=== PATIENT | female | born 1950 | race Caucasian/White ===

== ENCOUNTER 2019-03-01 12:59 | Emergency (ER) | payer MEDICARE, BC ==
[2019-03-01 13:09] VITALS: BP 153/66
--- NOTE | 2019-03-01 13:49 | ER Document Report ---
ED Medical Screen (RME) - General Chief Complaint: Fall Injury Stated Complaint: FALL Time Seen by Provider: 03/01/19 13:42 Mode of Arrival: Medic Information source: Patient Notes: Patient presents emergency department with puncture laceration to bridge of her nose abrasions to her forehead and nose after falling onto concrete. She reports she did have glasses on. Patient denies change in LOC. Reports left fifth digit finger pain which appears to be dislocated. Patient also complains of left knee pain. No active bleeding. Reports tetanus up-to-date. Patient reports she has had trouble falling lately due to vision problems and is being treated for glaucoma. Patient answering questions appropriately alert and oriented. I have greeted and performed a rapid initial assessment of this patient. A comprehensive ED assessment and evaluation of the patient, analysis of test results and completion of the medical decision making process will be conducted by additional ED providers. TRAVEL OUTSIDE OF THE [place] IN LAST 30 DAYS: No - Related Data Allergies/Adverse Reactions: amoxicillin Allergy (Verified 03/01/19 13:31) Penicillins Allergy (Verified 03/01/19 12:59) Past Medical History - Social History Chew tobacco use (# tins/day): No Frequency of alcohol use: None Drug Abuse: None - Past Medical History Cardiac Medical History: Reports: Hx Hypertension Pulmonary Medical History: Reports: Hx Asthma Endocrine Medical History: Reports: Hx Diabetes Mellitus Type 2 Renal/ Medical History: Denies: Hx Peritoneal Dialysis Past Surgical History: Reports: Hx Appendectomy, Hx Cholecystectomy, Hx Orthopedic Surgery - bilateral knees Physical Exam - Vital signs Vitals: Temp Pulse Resp BP Pulse Ox 98.7 F 83 16 153/66 H 96 03/01/19 13:06 03/01/19 13:06 03/01/19 13:06 03/01/19 13:06 03/01/19 13:06 Course - Vital Signs Vital signs: Temp Pulse Resp BP Pulse Ox 98.7 F 83 16 153/66 H 96 03/01/19 13:06 03/01/19 13:06 03/01/19 13:06 03/01/19 13:06 03/01/19 13:06
--- NOTE | 2019-03-01 14:19 | RADIOLOGY REPORT (SQ) ---
EXAM DESCRIPTION: CT HEAD WITHOUT; CT FACIAL AREA WITHOUT COMPLETED DATE/TIME: 03/01/2019 2:06 pm REASON FOR STUDY: fell onto concrete, open lac forehead,nose COMPARISON: None. TECHNIQUE: Axial images acquired through the brain and facial bones without intravenous contrast. I mages reviewed with bone, brain and subdural windows. Additional sagittal and coronal reconstruction s were generated. Images stored on PACS. All CT scanners at this facility use dose modulation, iterative reconstruction, and/or weight based d osing when appropriate to reduce radiation dose to as low as reasonably achievable (ALARA). [facility]: Dose Right [facility]: CareDose [facility]: Dose Right [facility]: Teradose 4D [facility]: Smart Number 100 RADIATION DOSE: CT Rad equipment meets quality standard of care and radiation dose reduction techniq ues were employed. CTDIvol: 53.2 mGy. DLP: 991 mGy-cm.; CT Rad equipment meets quality standard of ca re and radiation dose reduction techniques were employed. CTDIvol: 30.4 mGy. DLP: 549 mGy-cm. mGy. LIMITATIONS: None. FINDINGS: VENTRICLES: Normal size and contour. CEREBRUM: No masses. No hemorrhage. No midline shift. No evidence for acute infarction. Normal gra y/white matter differentiation. No areas of low density in the white matter. CEREBELLUM: No masses. No hemorrhage. No alteration of density. No evidence for acute infarction. EXTRAAXIAL SPACES: No fluid collections. No masses. ORBITS AND GLOBE: No intra- or extraconal masses. Normal contour of globe without masses. CALVARIUM: No fracture. Hyperostosis frontalis. FACIAL BONES: Comminuted fractures of the bilateral nasal bones. PARANASAL SINUSES: Mucosal thickening of the right maxillary sinus without air-fluid level. SOFT TISSUES: No mass or hematoma. OTHER: No other significant finding. IMPRESSION: 1. No acute intracranial pathology. 2. Comminuted fractures of the bilateral nasal bones. No other facial bone fractures. 3. Mucosal thickening of the right maxillary sinus without air-fluid level. Correlate for evidence of sinusitis. EVIDENCE OF ACUTE STROKE: NO. COMMENT: Quality ID # 436: Final reports with documentation of one or more dose reduction techniques (e.g., Automated exposure control, adjustment of the mA and/or kV according to patient size, use of iterative reconstruction technique) TECHNICAL DOCUMENTATION: JOB ID: [id number] [employer]- All Rights Reserved Reading location - IP/workstation name: [email or web address]
--- NOTE | 2019-03-01 14:19 | RADIOLOGY REPORT (SQ) ---
EXAM DESCRIPTION: CT HEAD WITHOUT; CT FACIAL AREA WITHOUT COMPLETED DATE/TIME: 03/01/2019 2:06 pm REASON FOR STUDY: fell onto concrete, open lac forehead,nose COMPARISON: None. TECHNIQUE: Axial images acquired through the brain and facial bones without intravenous contrast. I mages reviewed with bone, brain and subdural windows. Additional sagittal and coronal reconstruction s were generated. Images stored on PACS. All CT scanners at this facility use dose modulation, iterative reconstruction, and/or weight based d osing when appropriate to reduce radiation dose to as low as reasonably achievable (ALARA). [facility]: Dose Right [facility]: CareDose [facility]: Dose Right [facility]: Teradose 4D [facility]: Smart [employer] RADIATION DOSE: CT Rad equipment meets quality standard of care and radiation dose reduction techniq ues were employed. CTDIvol: 53.2 mGy. DLP: 991 mGy-cm.; CT Rad equipment meets quality standard of ca re and radiation dose reduction techniques were employed. CTDIvol: 30.4 mGy. DLP: 549 mGy-cm. mGy. LIMITATIONS: None. FINDINGS: VENTRICLES: Normal size and contour. CEREBRUM: No masses. No hemorrhage. No midline shift. No evidence for acute infarction. Normal gra y/white matter differentiation. No areas of low density in the white matter. CEREBELLUM: No masses. No hemorrhage. No alteration of density. No evidence for acute infarction. EXTRAAXIAL SPACES: No fluid collections. No masses. ORBITS AND GLOBE: No intra- or extraconal masses. Normal contour of globe without masses. CALVARIUM: No fracture. Hyperostosis frontalis. FACIAL BONES: Comminuted fractures of the bilateral nasal bones. PARANASAL SINUSES: Mucosal thickening of the right maxillary sinus without air-fluid level. SOFT TISSUES: No mass or hematoma. OTHER: No other significant finding. IMPRESSION: 1. No acute intracranial pathology. 2. Comminuted fractures of the bilateral nasal bones. No other facial bone fractures. 3. Mucosal thickening of the right maxillary sinus without air-fluid level. Correlate for evidence of sinusitis. EVIDENCE OF ACUTE STROKE: NO. COMMENT: Quality ID # [id number]: Final reports with documentation of one or more dose reduction techniques (e.g., Automated exposure control, adjustment of the mA and/or kV according to patient size, use of iterative reconstruction technique) TECHNICAL DOCUMENTATION: JOB ID: [id number] [employer]- All Rights Reserved Reading location - IP/workstation name: [email or web address]
--- NOTE | 2019-03-01 14:20 | RADIOLOGY REPORT (SQ) ---
EXAM DESCRIPTION: CT CERVICAL SPINE WITHOUT COMPLETED DATE/TIME: 03/01/2019 2:06 pm REASON FOR STUDY: fell onto concrete COMPARISON: None. TECHNIQUE: Axial images acquired through the cervical spine without intravenous contrast. Images re viewed with lung, soft tissue and bone windows. Reconstructed coronal and sagittal MPR images review ed. Images stored on PACS. All CT scanners at this facility use dose modulation, iterative reconstruction, and/or weight based d osing when appropriate to reduce radiation dose to as low as reasonably achievable (ALARA). [facility]: Dose Right [facility]: CareDose [facility]: Dose Right [facility]: Teradose 4D [facility]: [employer] RADIATION DOSE: CT Rad equipment meets quality standard of care and radiation dose reduction techniq ues were employed. CTDIvol: 19.4 mGy. DLP: 326 mGy-cm. mGy. LIMITATIONS: None. FINDINGS: ALIGNMENT: Anatomic. MINERALIZATION: Normal. VERTEBRAL BODIES: No fractures or dislocation. DISCS: Disc space narrowing from C4-C7. Anterior and posterior osteophytes are present. FACETS, LATERAL MASSES, POSTERIOR ELEMENTS: Hypertrophic facet changes are present bilaterally. HARDWARE: None in the spine. VISUALIZED RIBS: No fractures. LUNG APICES AND SOFT TISSUES: The right lobe of the thyroid is larger than the left and is heterogene ous. OTHER: No other significant finding. IMPRESSION: Degenerative disc disease. Spondylosis. Facet arthropathy. No acute findings. Promin ent right lobe of the thyroid. TECHNICAL DOCUMENTATION: JOB ID: [id number] Quality ID # [id number]: Final reports with documentation of one or more dose reduction techniques (e.g., Au tomated exposure control, adjustment of the mA and/or kV according to patient size, use of iterative reconstruction technique) 2010 [employer]- All Rights Reserved Reading location - IP/workstation name: [email or web address]
--- NOTE | 2019-03-01 14:22 | RADIOLOGY REPORT (SQ) ---
EXAM DESCRIPTION: HAND LEFT 3 VIEWS COMPLETED DATE/TIME: 03/01/2019 2:11 pm REASON FOR STUDY: fell onto concrete, open lac forehead,nose COMPARISON: None. EXAM PARAMETERS: NUMBER OF VIEWS: Three views. TECHNIQUE: AP, lateral and oblique radiographic images acquired of the left hand. LIMITATIONS: None. FINDINGS: MINERALIZATION: Normal. BONES: There is palmar subluxation of the middle phalanx at the left 5th proximal interphalangeal juan r nt. There is a tiny associated corner type fracture of the middle phalanx. No worrisome bone lesion s. JOINTS: Moderate to severe osteoarthritic pattern degenerative change about the left hand. SOFT TISSUES: No soft tissue swelling. No foreign body. OTHER: No other significant finding. IMPRESSION: There is palmar subluxation of the middle phalanx at the left 5th proximal interphalange al joint. There is a tiny associated corner type fracture of the middle phalanx. TECHNICAL DOCUMENTATION: JOB ID: [id number] [employer]- All Rights Reserved Reading location - IP/workstation name: [email or web address]
[2019-03-01] MEDS ORDERED: LIDOCAINE 1% INJ (10 MG/ML) 10 ML MDV INJ ONE (14:42)
[2019-03-01] MEDS ORDERED: LIDOCAINE 1% INJ-PF (10 MG/ML) 30 ML SDV INJ ONE (14:42)
--- NOTE | 2019-03-01 14:51 | ER Document Report ---
ED General - General Chief Complaint: Fall Injury Stated Complaint: FALL Time Seen by Provider: 03/01/19 13:42 Primary Care Provider: CATE SCHRADER FNP [Primary Care Provider] - Follow up as needed LIDYA LAUGHLIN MD [ACTIVE STAFF] - Follow up in 3-5 days Mode of Arrival: Medic Information source: Patient, [facility] Records Notes: 68-year-old female hypertension, type 2 diabetes, asthma presents after a trip and fall just prior to arrival. Patient states that she did not notice occurred when she was walking out of the dealership. She denies any preceding chest pain, shortness of breath, dizziness. She is not on any anticoagulation. She is complaining of pain to her left fifth finger and bridge of nose. Patient denies loss of consciousness. Last tetanus was a proximally 5 years ago. TRAVEL OUTSIDE OF THE [place] IN LAST 30 DAYS: No - HPI Onset: Just prior to arrival Onset/Duration: Sudden Quality of pain: Achy, Throbbing Severity: Mild Associated symptoms: Headache, Other - nose bleed Exacerbated by: Movement Relieved by: Denies Similar symptoms previously: No Recently seen / treated by doctor: No - Related Data Allergies/Adverse Reactions: amoxicillin Allergy (Verified 03/01/19 13:31) Penicillins Allergy (Verified 03/01/19 12:59) Past Medical History - General Information source: Patient - Social History Smoking Status: Never Smoker Chew tobacco use (# tins/day): No Frequency of alcohol use: None Drug Abuse: None Lives with: Spouse/Significant other Family History: Reviewed & Not Pertinent Patient has suicidal ideation: No Patient has homicidal ideation: No - Past Medical History Cardiac Medical History: Reports: Hx Hypertension Pulmonary Medical History: Reports: Hx Asthma Endocrine Medical History: Reports: Hx Diabetes Mellitus Type 2 Renal/ Medical History: Denies: Hx Peritoneal Dialysis Past Surgical History: Reports: Hx Appendectomy, Hx Cholecystectomy, Hx Orthopedic Surgery - bilateral knees Review of Systems - Review of Systems Notes: REVIEW OF SYSTEMS: CONSTITUTIONAL : Denies fever, chills, or sweats. Denies recent illness. Denies weight loss, recent hospitalizations. EENT: Denies visual changes, eye pain. Denies sore throat, oral lesions, difficulty swallowing. CARDIOVASCULAR: Denies chest pain. Denies palpitations. Denies lower extremity edema. RESPIRATORY: Denies cough. Denies shortness of breath, wheezing. GASTROINTESTINAL: Denies abdominal pain or distention. Denies nausea, vomiting, or diarrhea. Denies blood in vomitus, stools, or per rectum. Denies black, tarry stools. Denies constipation. GENITOURINARY: Denies difficulty urinating, painful urination, frequency, blood in urine, or vaginal discharge. MUSCULOSKELETAL: Denies back or neck pain or stiffness. Denies joint pain or swelling. SKIN: + Abrasion of nose/forehead, 1 cm laceration to the bridge of nose. Forehead abrasion. Ecchymosis to the left fifth finger. HEMATOLOGIC : Denies easy bruising or bleeding. LYMPHATIC: Denies swollen glands. NEUROLOGICAL: Denies confusion or altered mental status. Denies loss of consciousness. Denies dizziness or lightheadedness. Denies headache. Denies weakness or paralysis. Denies problems difficulty with ambulation, slurred speech. Denies sensory loss, numbness, or tingling. Denies seizures. PSYCHIATRIC: Denies anxiety or stress. Denies depression, suicidal ideation, or homicidal ideation. Denies visual or auditory hallucinations. Physical Exam - Vital signs Vitals: Temp Pulse Resp BP Pulse Ox 98.7 F 83 16 153/66 H 96 03/01/19 13:06 03/01/19 13:06 03/01/19 13:06 03/01/19 13:06 03/01/19 13:06 - Notes Notes: PHYSICAL EXAMINATION: GENERAL: Well-appearing, well-nourished and in no acute distress. GCS 15 HEAD: Atraumatic, normocephalic. EYES: Pupils equal round and reactive to light, extraocular movements intact, sclera anicteric, conjunctiva are normal. ENT: Nares patent, oropharynx clear without exudates. Moist mucous membranes. No hemanotympanum . No blood in nares. No dental fracture NECK: Normal range of motion, supple without lymphadenopathy. Trachea midline LUNGS: Breath sounds clear to auscultation bilaterally and equal. No wheezes rales or rhonchi. HEART: Regular rate and rhythm without murmurs. Pulses intact all throughout. ABDOMEN: Soft, nontender, nondistended abdomen. No guarding, no rebound. No masses appreciated. Musculoskeletal: Normal range of motion, no pitting or edema. No cyanosis. Hip non tender, stable. NEUROLOGICAL: Cranial nerves grossly intact. Normal speech, normal gait. Normal sensory, motor, and reflex exams. PSYCH: Normal mood, normal affect. SKIN: + Abrasion of forehead, 1 cm laceration to the bridge of nose. Forehead abrasion. Ecchymosis to the left fifth finger. Course - Re-evaluation Re-evalutation: 03/02/19 12:09 68 patient was provided copies of her imaging [id number] female presents after a trip and fall just prior to arrival. Found to have bilateral nasal bone fract ures a laceration across the bridge of her nose and a dislocated left fifth finger. Vital signs and imaging were reviewed. Digital block was performed and left fifth finger reduced successfully and placed in a splint. Suture repair of the laceration of the bridge of the nose was performed and patient tolerated this well. Advised that the patient should blow her nose softly, use Afrin as needed for nasal congestion and follow-up with ENT in the next 3-5 days. Reports. Patient was evaluated and treated as appropriate for the patient's presenting symptoms and complaint, with consideration of any critical or life threatening conditions that may be associated with their obtained history and exam as noted above. All results were discussed with patient. Patient provided the opportunity to ask questions, and express concerns. Patient was educated on treatments based on their presumed diagnosis as noted above. At this time we will discharge the patient with return precautions and follow-up recommendations. Verbal discharge instructions given a the bedside. Medication warnings reviewed. Patient is in agreement with this plan and has verbalized understanding of return precautions. After careful consideration I feel that that patient can be safely discharged from the emergency department, they were advised to followup with a primary care physician in 2-3 days. Dictation on this chart was performed using voice recognition software and may result in unintended grammatical, spelling, syntax or errors. - Vital Signs Vital signs: Temp Pulse Resp BP Pulse Ox 98.7 F 83 16 153/66 H 96 03/01/19 13:06 03/01/19 13:06 03/01/19 13:06 03/01/19 13:06 03/01/19 13:06 - Diagnostic Test Radiology reviewed: Image reviewed, Reports reviewed Procedures - Joint Reduction/Fracture Care Left Finger 5th digit Time completed: 15:29 Consent obtained: Yes Conscious sedation: No Pre-procedure NV exam: Yes Fracture: Closed Post-procedure NV exam: Yes Post-reduction x-ray: Joint reduced Reduction attempts: 1 Complications: No - Laceration/Wound Repair Face Time completed: 15:30 Wound length (cm): 1 Wound's Depth, Shape: Superficial Laceration pre-procedure: Sterile PPE donned, Betadine prep applied, Sterile drapes applied, Shur-Clens applied Anesthetic type: 1% Lidocaine Volume Anesthetic (mLs): 3 Wound explored: Clean Irrigated w/ Saline (mLs): 500 Wound Repaired With: Sutures Suture Size/Type: 6:0, Ethilon Number of Sutures: 2 Post-procedure wound care: Sterile dressing applied, Splint applied Discharge - Discharge Clinical Impression: Fall Qualifiers: Encounter type: initial encounter Qualified Code(s): W19.XXXA - Unspecified fall, initial encounter Facial laceration Qualifiers: Encounter type: initial encounter Qualified Code(s): S01.81XA - Laceration without foreign body of other part of head, initial encounter Forehead abrasion Qualifiers: Encounter type: initial encounter Qualified Code(s): S00.81XA - Abrasion of other part of head, initial encounter Finger dislocation Qualifiers: Encounter type: initial encounter Qualified Code(s): S63.259A - Unspecified dislocation of unspecified finger, initial encounter Nasal bone fracture Qualifiers: Encounter type: initial encounter Fracture type: closed Qualified Code(s): S02.2XXA - Fracture of nasal bones, initial encounter for closed fracture Condition: Good Disposition: HOME, SELF-CARE Instructions: Abrasions of the Face ([facility]), Antibiotic Ointment Protection ([facility]), Finger Dislocation ([facility]), Fracture of the Nose ([facility]), Laceration Care ([facility]), Soap Cleansing ([facility]) Additional Instructions: You have been seen in the Emergency Department (ED) today following a fall. Your workup today did not reveal any injuries that require you to stay in the hospital. You can expect, though, to be stiff and sore for the next several days. You can take Tylenol 1000 mg every 6 hours as needed for pain. You can apply a hot pack or electric heating pad to the sore areas. You can also use topical "Aspercreme with lidocaine" to sore areas as needed. Please follow up with your primary care doctor as soon as possible regarding today's ED visit and your recent fall. Call your doctor or return to the ED if you develop a sudden or severe headache, confusion, slurred speech, facial droop, weakness or numbness in any arm or leg, extreme fatigue, vomiting more than two times, severe abdominal pain, or other symptoms that concern you. Forms: Elevated Blood Pressure Referrals: CATE SCHRADER FNP [Primary Care Provider] - Follow up as needed LIDYA LAUGHLIN MD [ACTIVE STAFF] - Follow up in 3-5 days
[2019-03-01] MEDS ORDERED: OXYMETAZOLINE HCL 0.05% NASAL SPRAY 15 ML BOTTLE ONE (15:22)
== END 2019-03-01 17:12 | disposition home or self-care (01) ==
LOC: ER 12:59
DX: S01.81XA Laceration without foreign body of other part of head, initial encounter (principal); S00.81XA Abrasion of other part of head, initial encounter; S63.259A Unspecified dislocation of unspecified finger, initial encounter; S02.2XXA Fracture of nasal bones, initial encounter for closed fracture; W18.30XA Fall on same level, unspecified, initial encounter; I10 Essential (primary) hypertension; E11.9 Type 2 diabetes mellitus without complications; Z90.49 Acquired absence of other specified parts of digestive tract
CPT/HCPCS: 70486; 99284; 73130; 70450; 72125; 12011; 26770; J3490